=== PATIENT | male | born 1935 | race Caucasian/White ===

== ENCOUNTER 2018-10-06 10:33 | Day surgery (SDC) | payer MEDICARE, BC ==
[~2018-10-06 10:33] MED LIST: Buffered Lidocaine 1% SYRIN* 1 ML/SYRINGE INTRADERM ONE; Dexamethasone IV* 4 MG/ML 1 ML (4 MG) IV SLOW PU ONE; Famotidine IV* 10 MG/ML 2 ML (20 mg) IV ONE; Lactated Ringers 1000 ML Bag* 1,000 ML IV SCH
[2018-10-06] MEDS ORDERED: Dexamethasone IV* 4 MG/ML 1 ML (4 MG) ONE (12:29)
[2018-10-06] MEDS ORDERED: Famotidine IV* 10 MG/ML 2 ML (20 mg) ONE (12:30)
[2018-10-06] MEDS ORDERED: ceFAZolin 2 GM PREMIX in ORs 2 GM/50 ML BAG IVPB ONE (12:30)
[2018-10-06] MEDS ORDERED: fentaNYL* 50 MCG/ML 2 ML VIAL (100 MCG VIAL) ONE (13:19)
[2018-10-06] MEDS ORDERED: Lidocaine 2% PF * 5 ML VIAL ONE (13:19)
[2018-10-06] MEDS ORDERED: Propofol* 10 MG/ML 20 ML BTL ONE (13:19)
[2018-10-06] MEDS ORDERED: Rocuronium* 10 MG/ML VIAL ONE (13:48)
[2018-10-06] MEDS ORDERED: Sugammadex * 200 MG/2 ML VIAL IV PUSH ONE (13:48)
[2018-10-06] MEDS ORDERED: Lidocaine 1% INJ* 10 MG/ML 30 ML SDV ONE (14:23)
[2018-10-06] MEDS ORDERED: Naloxone* 0.4 MG/ML 1 ML VIAL IV PRN (15:32)
[2018-10-06] MEDS ORDERED: fentaNYL* 50 MCG/ML 2 ML VIAL (100 MCG VIAL) IV PRN (15:32)
[2018-10-06] MEDS ORDERED: HYDROcodone/ACETAMIN 5-325 MG* 1 TAB ONE (16:52)
[2018-10-06] MEDS ORDERED: HYDROcodone/ACETAMIN 5-325 MG* 1 TAB PO ONE (16:52)
[2018-10-06 17:45] VITALS: BP 106/67
--- NOTE | 2018-10-06 23:57 | OP ---
DATE OF OPERATION: 10/06/18 [facility] DATE OF : 39 SURGEON: Franklin Gimenez MD. TRANSPORTATION EQUIPMENT PAINTER: Craig Rodriguez MD. PRE-OP DIAGNOSES: Recurrent left inguinal hernia, possible right inguinal hernia. POST-OP DIAGNOSES: Recurrent left inguinal hernia, right direct inguinal hernia. OPERATIVE PROCEDURE: Laparoscoipc recurrent left inguinal hernia repair with mesh. INDICATIONS: Large recurrent left inguinal hernia. Risks of surgery included, but not limited to, bleeding, infection, recurrence of the hernia, injury to intraabdominal contents including the bowel, pelvic nerves or vessels were explained to the patient who seemed to understand and agreed to the procedure, and all questions were answered. DESCRIPTION OF PROCEDURE: The patient was taken to the operating room, placed supine. Preoperative antibiotics were given. After a successful induction of general endotracheal anesthesia, the pelvis/lower abdomen/inguinal area were prepped and draped in sterile fashion. A time-out was performed, correct procedure and correct patient were identified. An infraumbilical incision was made and carried down through the subcutaneous tissue. The anterior fascia was opened. The left rectus was pulled laterally. The preperitoneal space was entered. A balloon was placed and the camera was placed through the balloon device. The balloon was insufflated and then removed. The 12 trocar was placed through this. Two 5-mm trocars were placed in the midline equidistant from the pubis to this. A large left inguinal hernia was immediately noted. Satya ligament was identified on the left. The lateral aspect was then freed revealing a large hernia sac, indirect. This was taken off the spermatic cord. Elements of the cord were identified. There was a very thick scarred area at the apex of this, which was divided. No mesh was visually seen. A rent in the peritoneum was closed with some 5-mm clips. A piece of 10 x 15 mesh was brought in and placed past the midline covering the femoral direct and indirect spaces. There appeared to be lipoma and adipose tissue, a fair amount in the left femoral space, and this was covered nicely. The right side was then evaluated. The peritoneum was taken down, and there appeared to be a right direct hernia above the ileopubic tract medial to the epigastric vessels. No indirect hernia was noted. The spermatic cord was seen on the right. The peritoneum was taken down. A piece of 10 x 15 mesh, which was shaped slightly more narrow and shorter and placed on the right side covering the femoral direct and indirect spaces. Pneumoperitoneum was allowed to release from the operative field. The trocars were removed. Fascia was closed with 0 Vicryl and the skin was closed with Monocryl and glue. He tolerated the procedure well. EBL was minimal. [id number]/[facility] #: [id number] MTDD
== END 2018-10-06 17:48 | disposition home or self-care (01) ==
LOC: OR 10:33
PROVIDERS: ATTEND Surgery
DX: K40.91 Unilateral inguinal hernia, without obstruction or gangrene, recurrent (principal); E78.5 Hyperlipidemia, unspecified; I35.0 Nonrheumatic aortic (valve) stenosis; Z87.891 Personal history of nicotine dependence; M19.90 Unspecified osteoarthritis, unspecified site; Z86.718 Personal history of other venous thrombosis and embolism; Z79.01 Long term (current) use of anticoagulants; Z86.711 Personal history of pulmonary embolism
CPT/HCPCS: C1781; J0690; J1100; J2704; J3010

== ENCOUNTER 2019-09-16 08:50 | Day surgery (SDC) | payer MEDICARE, BC ==
[~2019-09-16 08:50] MED LIST changes: +Acetaminophen TAB* 325 MG PO PRN; -Dexamethasone IV* 4 MG/ML 1 ML (4 MG) IV SLOW PU ONE; -Famotidine IV* 10 MG/ML 2 ML (20 mg) IV ONE; -Lactated Ringers 1000 ML Bag* 1,000 ML IV SCH
[2019-09-16] MEDS ORDERED: Lidocaine 1% MPF ** 5 ML VIAL ONE (09:42)
[2019-09-16] MEDS ORDERED: Lidocaine 2% w/ EPI 1:200,000* 20 ML SDV VIAL ONE (09:42)
[2019-09-16] MEDS ORDERED: Phenylephrine OPHTH SOL 2.5%* 2 ML ONE (09:42)
[2019-09-16] MEDS ORDERED: Proparacaine 0.5% OPHTH.SOL* 15 ML BTL ONE (09:42)
[2019-09-16] MEDS ORDERED: Ketorolac 0.5% OPHTH (NF) 0.5 % 5 ML BTL ONE (09:42)
[2019-09-16] MEDS ORDERED: Cyclopentolate 1% OPTH.SOL* 2 ML BTL ONE (09:42)
[2019-09-16] MEDS ORDERED: Neomycin/Polymy/Dex OPTH.SUSP* MAXITROL 0.1% 5 ML ONE (09:42)
[2019-09-16] MEDS ORDERED: acetaZOLAMIDE TAB* 250 MG ONE (09:42)
[2019-09-16] MEDS ORDERED: Povidone Iodine 5% OPTH* 30 ML BTL ONE (09:42)
[2019-09-16] MEDS ORDERED: Midazolam* 1 MG/ML 2 ML VIAL (2 MG) ONE (11:01)
[2019-09-16] MEDS ORDERED: Propofol* 10 MG/ML 20 ML BTL ONE (11:14)
[2019-09-16] MEDS ORDERED: Lidocaine 2% PF * 5 ML VIAL ONE (11:14)
[2019-09-16] MEDS ORDERED: fentaNYL* 50 MCG/ML 2 ML VIAL (100 MCG VIAL) ONE (11:14)
[2019-09-16 11:50] VITALS: BP 121/76
--- NOTE | 2019-09-16 20:21 | OP ---
DATE OF OPERATION: 09/16/18 - [facility] DATE OF : 39 SURGEON: Tucker Ray M.D. PREOPERATIVE DIAGNOSIS: Cataract, right eye. POSTOPERATIVE DIAGNOSIS: Cataract, right eye. OPERATIVE PROCEDURE: Extracapsular cataract extraction with intraocular lens implant right eye. DESCRIPTION OF PROCEDURE: The patient was brought to the operating room after being given 1/2% Alcaine with epinephrine drops in the preoperative area. The eye was prepped and draped in the usual sterile fashion. Sterile drape and eyelid speculum were placed. Again, topical 1/2% Alcaine with epinephrine was given. A paracentesis incision was made at the 9 o'clock position with the No.75 blade. Clear cornea incision 2.2 x 2.2-mm was created at the 12 o'clock position starting at the anterior limbus using the 2.2-mm keratome. The anterior chamber was irrigated with 0.4 mL of 1% non-preservative intracameral lidocaine and filled with DisCoVisc. A capsulorrhexis was completed using the cystotome and the Utrata forceps. Hydrodissection was performed with balanced salt solution. The lens nucleus was removed with the Phacoemulsification handpiece without incident. Cortex was removed with the irrigation-aspiration handpiece. The capsular bag was re-inflated using DisCoVisc and an [id number] 21 implant was inserted with the shooter. The irrigation-aspiration handpiece was used to remove all residual DisCoVisc. The eye was refilled with balanced salt solution and the wound checked and found to be watertight. Topical Maxitrol drops were given. [id number]/[facility] #: [id number] MTDD
== END 2019-09-16 11:45 | disposition home or self-care (01) ==
LOC: OREAST 08:50
PROVIDERS: ATTEND Specialist
DX: H25.811 Combined forms of age-related cataract, right eye (principal); Z86.711 Personal history of pulmonary embolism; Z87.891 Personal history of nicotine dependence; I35.0 Nonrheumatic aortic (valve) stenosis
CPT/HCPCS: A9270-GY; J2250; J2704; J3010; V2632

== ENCOUNTER 2019-09-30 08:30 | Day surgery (SDC) | payer MEDICARE, BC ==
[2019-09-30] MEDS ORDERED: Midazolam* 1 MG/ML 5 ML VIAL (5 MG) ONE (10:00)
[2019-09-30] MEDS ORDERED: fentaNYL* 50 MCG/ML 2 ML VIAL (100 MCG VIAL) ONE (10:00)
[2019-09-30 11:15] VITALS: BP 124/71
--- NOTE | 2019-09-30 11:36 | OP ---
DATE OF OPERATION: 09/30/2019. DATE OF : 1935. SURGEON: Tucker Ray M.D. PREOPERATIVE DIAGNOSIS: Cataract left eye. POSTOPERATIVE DIAGNOSIS: Cataract left eye. OPERATIVE PROCEDURE: Extracapsular cataract extraction with intraocular lens implant left eye. PROCEDURE: The patient was brought to the operating room after being given 1/2% Alcaine with epineph rine drops in the preoperative area. The eye was prepped and draped in the usual sterile fashion. S terile drape and eyelid speculum were placed. Again, topical 1/2% Alcaine with epinephrine was given . A paracentesis incision was made at the 3 o'clock position with the No.75 blade. Clear cornea inc ision 2.2 x 2.2-mm was created at the 6 o'clock position starting at the anterior limbus using the 2. 2-mm keratome. The anterior chamber was irrigated with 0.4 mL of 1% non-preservative intracameral li docaine and filled with DisCoVisc. A capsulorrhexis was completed using the cystotome and the Utrata forceps. Hydrodissection was performed with balanced salt solution. The lens nucleus was removed wi th the Phacoemulsification handpiece without incident. Cortex was removed with the irrigation-aspira tion handpiece. The capsular bag was re-inflated using DisCoVisc and an SN60WF 21.5 implant was inse rted with the shooter. The irrigation-aspiration handpiece was used to remove all residual DisCoVisc . The eye was refilled with balanced salt solution and the wound checked and found to be watertight. Topical Maxitrol drops were given. [id number]/[facility] #: [id number]
[2019-09-30] MEDS ORDERED: acetaZOLAMIDE TAB* 250 MG ONE (13:57)
[2019-09-30] MEDS ORDERED: Lidocaine 1% MPF ** 5 ML VIAL ONE (13:57)
[2019-09-30] MEDS ORDERED: Phenylephrine OPHTH SOL 2.5%* 2 ML ONE (13:57)
[2019-09-30] MEDS ORDERED: Cyclopentolate 1% OPTH.SOL* 2 ML BTL ONE (13:57)
[2019-09-30] MEDS ORDERED: Lidocaine 2% w/ EPI 1:200,000* 20 ML SDV VIAL ONE (13:57)
[2019-09-30] MEDS ORDERED: Neomycin/Polymy/Dex OPTH.SUSP* MAXITROL 0.1% 5 ML ONE (13:57)
[2019-09-30] MEDS ORDERED: Ketorolac 0.5% OPHTH (NF) 0.5 % 5 ML BTL ONE (13:57)
[2019-09-30] MEDS ORDERED: Proparacaine 0.5% OPHTH.SOL* 15 ML BTL ONE (13:57)
== END 2019-09-30 11:24 | disposition home or self-care (01) ==
LOC: OREAST 08:30
PROVIDERS: ATTEND Specialist
DX: H25.812 Combined forms of age-related cataract, left eye (principal); Z86.711 Personal history of pulmonary embolism; Z86.718 Personal history of other venous thrombosis and embolism; Z87.891 Personal history of nicotine dependence; I35.0 Nonrheumatic aortic (valve) stenosis; N40.0 Benign prostatic hyperplasia without lower urinary tract symptoms; M19.90 Unspecified osteoarthritis, unspecified site; E78.5 Hyperlipidemia, unspecified
CPT/HCPCS: A9270-GY; J2250; J3010; V2632